=== PATIENT | female | born 1960 | race Hispanic/Latino ===

== ENCOUNTER 2018-03-18 14:30 | Emergency (ER) | payer BC ==
[~2018-03-18] VITALS: Ht 165.1 cm; Wt 59.9 kg
[2018-03-18] MEDS ORDERED: LEVOFLOXACIN 500 MG TAB PO ONE (15:00)
== END 2018-03-18 14:55 | disposition home or self-care (01) ==
LOC: FSED 14:30
DX: R30.0 Dysuria (principal); N30.91 Cystitis, unspecified with hematuria
CPT/HCPCS: 80307; 99283